=== PATIENT | male | born 1965 | race Two or more races ===

== ENCOUNTER 2018-09-11 19:16 | Emergency (ER) | payer OTHER | END 2018-09-11 20:51 | disposition other institution (70) | LOC: ED 19:16 | DX: Z02.89 Encounter for other administrative examinations (principal) ==

== ENCOUNTER 2018-09-11 19:16 | Emergency (ER) | payer SELFPAY ==
[~2018-09-11] VITALS: Ht 165.1 cm; Wt 70.3 kg
[2018-09-11 19:33] VITALS: Ht 165.1 cm; Wt 70.3 kg
[2018-09-11 20:51] VITALS: BP 144/91
== END 2018-09-11 20:51 | disposition other institution (70) ==
LOC: ED 19:16
DX: S61.210A Laceration without foreign body of right index finger without damage to nail, initial encounter (principal); S67.190A Crushing injury of right index finger, initial encounter; X36.1XXA Avalanche, landslide, or mudslide, initial encounter; Y93.89 Activity, other specified; Y92.89 Other specified places as the place of occurrence of the external cause; Y99.8 Other external cause status
CPT/HCPCS: J2001